=== PATIENT | female | born 1995 | race Caucasian/White ===

== ENCOUNTER 2017-11-20 11:16 | Emergency (ER) | payer BC ==
[~2017-11-20] VITALS: Ht 165.1 cm; Wt 75.7 kg
[2017-11-20 11:19] VITALS: TEMP 36.8; Ht 165.1 cm; Wt 75.7 kg
[2017-11-20] MEDS ORDERED: ONDANSETRON INJ 2 MG/ML 2 ML VIAL IV STA (11:40)
[2017-11-20] MEDS ORDERED: FAMOTIDINE 20 MG TAB PO STA (11:40)
[2017-11-20] MEDS ORDERED: GI COCKTAIL PO STA (11:40)
[2017-11-20] MEDS ORDERED: SUCRALFATE 1 GM TAB PO STA (11:40)
--- NOTE | 2017-11-20 11:47 | EMERGENCY ROOM VISIT NOTE ---
History Report prepared by Cruz: Chantal Zamora Under the Supervision of: Dr. Gregory Robles M.D. First contact with patient: 11:29 Chief Complaint: ILLNESS Stated Complaint: STOMACH ACHE, LIGHT HEADED History of Present Illness The patient is a 22 year old female who presents to the Emergency Room with complaints of a constant headache in the back of her head that began 4 days ago. She feels very lightheaded and describes it as feeling "very drunk." She was having spells of dizziness but now they are constant. She has a past history of stomach issues for the last 3 years, migraines, and not eating normally. She denies hitting her head and any alcohol drinking. Screens and bright lights worsen her symptoms. She has SOB when "the world shifts" but denies any chest pain. The patient notes she has never had a CAT scan or an MRI. Her LNMP was three weeks ago but denies retaining a tampon or . She also has not been taking her medications such as control or Lipitor for the last month because she was "tired of them not working." Source of History: patient Onset: 4 days ago Position: head Timing: constant Modifying Factors (Worsening): other (Screens and bright lights ) Associated Symptoms: + SOB, No chest pain Review of Systems See HPI for pertinent positives & negatives. A total of 10 systems reviewed and were otherwise negative. Past Medical & Surgical Medical Problems: (1) Stomach problems Surgical Problems: (1) Tonsillectomy planned Family History Cancer Social History Smoking Status: Never Smoker Smokeless Tobacco Use: No Alcohol Use: none Housing Status: lives with roommate Occupation Status: student Current/Historical Medications No Active Prescriptions or Reported Meds Allergies Coded Allergies: No Known Allergies (Unverified , 11/20/17) Physical Exam Vital Signs Date Time Temp Pulse Resp B/P (MAP) Pulse Ox O2 Delivery O2 Flow Rate FiO2 11/20/17 14:05 84 18 133/74 99 11/20/17 13:18 83 16 145/78 96 Room Air 11/20/17 12:14 82 16 127/80 100 Room Air 11/20/17 12:11 100 Room Air 11/20/17 11:19 36.8 104 18 147/90 99 Room Air Physical Exam GENERAL: Patient is a healthy-appearing well-nourished female. HEAD: Normocephalic atraumatic EYES: Ocular movements intact pupils equal and react to light OROPHARYNX mucous membranes are moist no exudates present no erythema or edema present NECK: Supple no nuchal rigidity CHEST: Good equal expansion LUNGS: Clear and equal to auscultation CARDIAC: Normal S1 and S2 ABDOMEN: Soft nontender no guarding BACK: No CVA tenderness EXTREMITIES: No pain upon palpation normal muscle strength in all groups no clubbing cyanosis or edema NEURO: Patient is following commands and answering questions appropriately. Alert and oriented x3 Cranial Nerves 2-12 grossly intact Medical Decision & Procedures ER Provider Diagnostic Interpretation: Radiology results as stated below per my review and radiologist interpretation: PA CHEST WITH ABDOMINAL SERIES CLINICAL HISTORY: Nausea and vomiting. Generalized abdominal pain. FINDINGS: A PA chest radiograph is compared to obtained. No prior studies are available for comparison at the time of dictation. The cardiomediastinal silhouette is unremarkable. The lungs and pleural spaces are clear. No pneumothorax is seen. The bony thorax is grossly intact. Supine and erect abdominal radiographs are obtained. No prior studies are available for comparison at the time of dictation. There is a nonobstructed abdominal bowel gas pattern. Mild to moderate colonic fecal retention is observed. No evidence of intraperitoneal free air is seen. There are no abnormal abdominal calcifications. The lumbosacral spine and bony pelvis appear intact. IMPRESSION: 1. No active disease in the chest. 2. Nonobstructed abdominal bowel gas pattern. Electronically signed by: Danny Link M.D. 11/20/2017 1:24 PM Dictated Date/Time: 11/20/2017 1:[address] SCAN OF THE BRAIN WITHOUT IV CONTRAST CLINICAL HISTORY: Dizziness. Vomiting. COMPARISON STUDY: No priors. TECHNIQUE: Unenhanced axial CT scan of the brain is performed from the vertex to the skull base. A dose lowering technique was utilized adhering to the principles of ALARA. CT DOSE: 537.48 mGy.cm FINDINGS: Brain parenchyma: The brain parenchyma is normal in appearance. There is no hemorrhage, mass effect, or evidence of acute territorial ischemia by CT criteria. [place]-white matter is preserved. No extra-axial fluid collection is seen. Ventricles, sulci, cisterns: Normal in configuration. Intracranial vasculature: The visualized intracranial vasculature at the skull base is normal in appearance. Calvarium: Unremarkable. Sinuses and mastoids: The visualized paranasal sinuses are clear. The mastoid air cells are well pneumatized. Orbits: The bony orbits are grossly intact. IMPRESSION: No acute intracranial abnormality. Electronically signed by: Danny Link M.D. 11/20/2017 1:33 PM Dictated Date/Time: 11/20/2017 1:32 PM Laboratory Results 11/20/17 12:05 Red Blood Count 4.75, Mean Corpuscular Volume 86.5, Mean Corpuscular Hemoglobin 29.5, Mean Corpuscular Hemoglobin Concent 34.1, Mean Platelet Volume 9.4, Neutrophils (%) (Auto) 51.3, Lymphocytes (%) (Auto) 39.5, Monocytes (%) (Auto) 7.2, Eosinophils (%) (Auto) 1.1, Basophils (%) (Auto) 0.5, Neutrophils # (Auto) 4.25, Lymphocytes # (Auto) 3.27, Monocytes # (Auto) 0.60, Eosinophils # (Auto) 0.09, Basophils # (Auto) 0.04 11/20/17 12:05 Test 11/20/17 11:53 11/20/17 11:58 11/20/17 12:02 11/20/17 12:05 Influenza Type A Antigen Neg for Influ A (NEG) Influenza Type B Antigen Neg for Influ B (NEG) Urine Color YELLOW Urine Appearance CLEAR (CLEAR) Urine pH >= 9.0 (4.5-7.5) Urine Specific [place] 1.021 (1.000-1.030) Urine Protein NEG (NEG) Urine Glucose (UA) NEG (NEG) Urine Ketones NEG (NEG) Urine Occult Blood NEG (NEG) Urine Nitrite NEG (NEG) Urine Bilirubin NEG (NEG) Urine Urobilinogen NEG (NEG) Urine Leukocyte Esterase TRACE (NEG) Urine WBC (Auto) 1-5 /hpf (0-5) Urine RBC (Auto) 5-10 /hpf (0-4) Urine Hyaline Casts (Auto) 1-5 /lpf (0-5) Urine Epithelial Cells (Auto) >30 /lpf (0-5) Urine Bacteria (Auto) NEG (NEG) Urine Test NEG (NEG) Bedside Glucose 95 mg/dl (70-90) White Blood Count 8.28 K/uL (4.8-10.8) Red Blood Count 4.75 M/uL (4.2-5.4) Hemoglobin 14.0 g/dL (12.0-16.0) Hematocrit 41.1 % (37-47) Mean Corpuscular Volume 86.5 fL (80-100) Mean Corpuscular Hemoglobin 29.5 pg (25-34) Mean Corpuscular Hemoglobin Concent 34.1 g/dl (32-36) Platelet Count 285 K/uL (130-400) Mean Platelet Volume 9.4 fL (7.4-10.4) Neutrophils (%) (Auto) 51.3 % Lymphocytes (%) (Auto) 39.5 % Monocytes (%) (Auto) 7.2 % Eosinophils (%) (Auto) 1.1 % Basophils (%) (Auto) 0.5 % Neutrophils # (Auto) 4.25 K/uL (1.4-6.5) Lymphocytes # (Auto) 3.27 K/uL (1.2-3.4) Monocytes # (Auto) 0.60 K/uL (0.11-0.59) Eosinophils # (Auto) 0.09 K/uL (0-0.5) Basophils # (Auto) 0.04 K/uL (0-0.2) RDW Standard Deviation 40.0 fL (36.4-46.3) RDW Coefficient of Variation 12.5 % (11.5-14.5) Immature Granulocyte % (Auto) 0.4 % Immature Granulocyte # (Auto) 0.03 K/uL (0.00-0.02) Anion Gap 9.0 mmol/L (3-11) Est Creatinine Clear Calc Drug Dose 145.0 ml/min Estimated GFR () 149.7 Estimated GFR (Non- 129.1 BUN/Creatinine Ratio 11.5 (10-20) Calcium Level 9.6 mg/dl (8.5-10.1) Total Bilirubin 0.3 mg/dl (0.2-1) Direct Bilirubin < 0.1 mg/dl (0-0.2) Aspartate Amino Transf (AST/SGOT) 37 U/L (15-37) Alanine Aminotransferase (ALT/SGPT) 61 U/L (12-78) Alkaline Phosphatase 90 U/L (45-117) Total Protein 8.0 gm/dl (6.4-8.2) Albumin 4.1 gm/dl (3.4-5.0) Thyroid Stimulating Hormone (TSH) 2.110 uIu/ml (0.300-4.500) Lyme Disease IgG Antibody NEG (NEG) Monoscreen NEG (NEG) Labs reviewed by ED physician. Medications Administered Medications (Trade) Dose Ordered Sig/Augustina Route Start Time Stop Time Status Last Admin Dose Admin Famotidine (Pepcid Tab) 20 mg NOW STAT PO 11/20/17 11:40 11/20/17 11:42 DC 11/20/17 11:56 20 MG Sucralfate (Carafate Tab) 1 gm NOW STAT PO 11/20/17 11:40 11/20/17 11:42 DC 11/20/17 11:55 1 GM Ondansetron HCl (Zofran Inj) 4 mg NOW STAT IV 11/20/17 11:40 11/20/17 11:42 DC 11/20/17 12:05 4 MG Lidocaine HCl (Viscous Lidocaine 2% Soln) 20 ml STK-MED ONCE .ROUTE 11/20/17 11:50 11/20/17 11:51 DC 11/20/17 11:56 20 ML Al Hydroxide/Mg Hydroxide (Maalox Susp) 30 ml STK-MED ONCE .ROUTE 11/20/17 11:50 11/20/17 11:51 DC 11/20/17 11:56 30 ML Meclizine HCl (Antivert Tab) 25 mg NOW STAT PO 11/20/17 12:45 11/20/17 12:46 DC 11/20/17 13:17 25 MG ECG Indication: weakness Rate (beats per minute): 78 Rhythm: normal sinus Findings: no acute ischemic change, no ectopy ED Course 1135: Past medical records reviewed. The patient was evaluated in room C5. A complete history and physical examination was performed. 1140: Ordered Zofran 4 mg IV, Sucralfate 1 gm PO, Pepcid Tab 20 mg PO, GI Cocktail 24 ml PO 1245: Ordered Meclizine HCl 25 mg PO 1345: Upon reexamination the patient is agreeable. I discussed results and treatment plan with the patient. She verbalizes agreement and understanding. The patient is ready for discharge. Medical Decision Differential diagnosis: Etiologies such as benign positional vertigo, dehydration, hypovolemia, anemia, tumor, infection, hypoglycemia, electrolyte abnormalities, cardiac sources, intracerebral event, toxicologic, neurologic, as well as others were entertained. This is a 22-year-old female who presents emergency department complaining of dizziness and lightheadedness. The patient recently stopped taking her medications at approximately 3 weeks ago. I will note she is afebrile and does not have an elevation in her white blood count cell count here. I discussed the patient's care with her mother who was also in agreement with the treatment plan prior to initiating laboratory work. She has a normal mono normal CBC normal renal profile. Her influenza swab is negative. The patient does have a positive Lyme titer and I recommended waiting for a Western blot to be performed. I do feel that the patient as well as to be discharged home for follow-up with [facility]. Patient and mother were in agreement with the treatment plan. Blood Pressure Screening Patient's blood pressure: Normal blood pressure Impression Primary Impression: Dizziness Scribe Attestation The scribe's documentation has been prepared under my direction and personally reviewed by me in its entirety. I confirm that the note above accurately reflects all work, treatment, procedures, and medical decision making performed by me. Departure Information Dispostion Home / Self-Care Prescriptions No Active Prescriptions or Reported Meds Patient Instructions My [facility] Additional Instructions Increase fluids next 48 hours Culture results are usually available in approx 48 hours You have been examined and treated today on an emergency basis only. This is not a substitute for, or an effort to provide, complete comprehensive medical care. It is impossible to recognize and treat all injuries or illnesses in a single emergency department visit. It is therefore important that you follow up closely with [facility]. Call as soon as possible for an appointment. Thank you for your time and consideration. I look forward to speaking with you again soon. Please don't hesitate to call us if you have any questions.
[2017-11-20] MEDS ORDERED: ALUMINUM/MAGNESIUM SUSP 30 ML UDC ONE (11:50)
[2017-11-20] MEDS ORDERED: LIDOCAINE HCL 2% VISC SOLN 20 ML UDC ONE (11:50)
[2017-11-20 12:11] VITALS: O2SAT 100
[2017-11-20 12:21] LABS: BASO % 0.5 %; BASO ABS # 0.04 K/uL (0-0.2); EOS % 1.1 %; EOS ABS # 0.09 K/uL (0-0.5); HEMATOCRIT 41.1 % (37-47); IG# 0.03 K/uL (0.00-0.02); LYMPH % 39.5 %; LYMPH ABS # 3.27 K/uL (1.2-3.4); MEAN CELL VOLUME 86.5 fL (80-100); MEAN CORPUSCULAR HEMOGLOBIN 29.5 pg (25-34); MEAN CORPUSCULAR HGB CONC 34.1 g/dl (32-36); MEAN PLATELET VOLUME 9.4 fL (7.4-10.4); MONO % 7.2 %; NEUT % 51.3 %; NEUT ABS # 4.25 K/uL (1.4-6.5); PLATELET COUNT 285 K/uL (130-400); RED CELL DISTRIBUTION WIDTH CV 12.5 % (11.5-14.5); WHITE BLOOD COUNT 8.28 K/uL (4.8-10.8)
[2017-11-20 12:34] LABS: INFLUENZA B ANTIGEN Neg for Influ B (NEG)
[2017-11-20 12:39] LABS: MONOSPOT NEG (NEG)
[2017-11-20 12:41] LABS: ALBUMIN 4.1 gm/dl (3.4-5.0); ALT/SGPT 61 U/L (12-78); BLOOD UREA NITROGEN 7 mg/dl (7-18); CALCIUM 9.6 mg/dl (8.5-10.1); CARBON DIOXIDE 23 mmol/L (21-32); CREATININE 0.63 mg/dl (0.60-1.20); GLUCOSE 90 mg/dl (70-99); POTASSIUM 3.9 mmol/L (3.5-5.1); SODIUM 137 mmol/L (136-145)
[2017-11-20] MEDS ORDERED: MECLIZINE HCL 25 MG TAB PO STA (12:45)
[2017-11-20 12:51] LABS: ALKALINE PHOSPHATASE 90 U/L (45-117); AST/SGOT 37 U/L (15-37)
--- NOTE | 2017-11-20 13:26 | DIAGNOSTIC IMAGING REPORT ---
PA CHEST WITH ABDOMINAL SERIES CLINICAL HISTORY: Nausea and vomiting. Generalized abdominal pain. FINDINGS: A PA chest radiograph is compared to obtained. No prior studies are available for comparison at the time of dictation. The cardiomediastinal silhouette is unremarkable. The lungs and pleural spaces are clear. No pneumothorax is seen. The bony thorax is grossly intact. Supine and erect abdominal radiographs are obtained. No prior studies are available for comparison at the time of dictation. There is a nonobstructed abdominal bowel gas pattern. Mild to moderate colonic fecal retention is observed. No evidence of intraperitoneal free air is seen. There are no abnormal abdominal calcifications. The lumbosacral spine and bony pelvis appear intact. IMPRESSION: 1. No active disease in the chest. 2. Nonobstructed abdominal bowel gas pattern. Electronically signed by: Danny Link M.D. 11/20/2017 1:24 PM Dictated Date/Time: 11/20/2017 1:24 PM
--- NOTE | 2017-11-20 13:35 | DIAGNOSTIC IMAGING REPORT ---
CT SCAN OF THE BRAIN WITHOUT IV CONTRAST CLINICAL HISTORY: Dizziness. Vomiting. COMPARISON STUDY: No priors. TECHNIQUE: Unenhanced axial CT scan of the brain is performed from the vertex to the skull base. A dose lowering technique was utilized adhering to the principles of ALARA. CT DOSE: 537.48 mGy.cm FINDINGS: Brain parenchyma: The brain parenchyma is normal in appearance. There is no hemorrhage, mass effect, or evidence of acute territorial ischemia by CT criteria. [place]-white matter is preserved. No extra-axial fluid collection is seen. Ventricles, sulci, cisterns: Normal in configuration. Intracranial vasculature: The visualized intracranial vasculature at the skull base is normal in appearance. Calvarium: Unremarkable. Sinuses and mastoids: The visualized paranasal sinuses are clear. The mastoid air cells are well pneumatized. Orbits: The bony orbits are grossly intact. IMPRESSION: No acute intracranial abnormality. Electronically signed by: Danny Link M.D. 11/20/2017 1:33 PM Dictated Date/Time: 11/20/2017 1:32 PM
[2017-11-20 14:05] VITALS: BP 133/74; PULSE 84; O2SAT 99
[2017-11-23 13:17] LABS: EBV EARLY ANTIGEN AB < 9.00 U/ML
== END 2017-11-20 14:36 | disposition home or self-care (01) ==
LOC: C.EDB 11:18 → C.EDC 14:36
DX: R42 Dizziness and giddiness (principal)